=== PATIENT | male | born 1980 | race Two or more races ===

== ENCOUNTER 2023-12-24 10:40 | Emergency (ER) | payer MEDICAID ==
[~2023-12-24] VITALS: Ht 185.4 cm; Wt 113.0 kg
[2023-12-24 10:43] VITALS: O2SAT 98
[2023-12-24 12:02] LABS: BASOPHILS % 0.5 % (0.0-2.0); EOSINOPHILS % 3.5 % (0.0-5.0); HEMATOCRIT. 42.5 % (42.0-52.0); HEMOGLOBIN. 14.2 g/dL (14.0-18.0); LYMPHOCYTES % 14.6 % (20.0-50.0); MEAN CORPUSCULAR HEMOGLOBIN 32.8 pg (28.0-32.0); MEAN CORPUSCULAR HGB CONC 33.5 g/dL (31.0-37.0); MEAN CORPUSCULAR VOLUME 97.8 fL (80.0-94.0); MEAN PLATELET VOLUME 8.5 fl (7.4-10.4); MONOCYTES % 10.1 % (2.0-8.0); NEUTROPHILS % 71.3 % (40.0-76.0); PLATELET 187 x1000/uL (130-400); RED BLOOD CELL COUNT 4.34 mill/uL (4.7-6.1); RED CELL DISTRIBUTION WIDTH 13.5 % (11.6-14.6); WHITE BLOOD COUNT 5.9 x1000/uL (4.5-11.0)
[2023-12-24 12:13] LABS: CARBON DIOXIDE 24 mEq/L (21-32); CHLORIDE 112 mEq/L (98-107); POTASSIUM 4.2 mEq/L (3.5-5.1); SODIUM 141 mEq/L (136-145)
[2023-12-24 12:14] LABS: CALCIUM 9.7 mg/dL (8.7-10.4)
[2023-12-24 12:19] LABS: GLUCOSE 104 mg/dL (70-105); UREA NITROGEN BLOOD 7 mg/dL (9-23)
[2023-12-24 12:20] LABS: ALANINE AMINOTRANSFERASE 17 IU/L (10-49); ALBUMIN 4.3 g/dL (3.2-4.8)
[2023-12-24 12:21] LABS: ASPARTATE AMINOTRANSFERASE 26 IU/L (<34); BILIRUBIN DIRECT 0.2 mg/dL (<=3.0); BILIRUBIN TOTAL 0.7 mg/dL (0.1-1.0); PROTEIN TOTAL 6.7 g/dL (6.0-8.3)
[2023-12-24] MEDS: KETOROLAC 30MG/ML VIAL IM ONE (12:38)
[2023-12-24 12:55] LABS: CLARITY URINE CLEAR (CLEAR); COLOR URINE YELLOW (YELLOW); GLUCOSE URINE NEGATIVE (NEGATIVE); KETONES URINE TRACE (NEGATIVE); LEUKOCYTE ESTERASE URINE NEGATIVE (NEGATIVE); NITRITE URINE NEGATIVE (NEGATIVE); OCCULT BLOOD URINE TRACE (NEGATIVE); PROTEIN URINE NEGATIVE (NEGATIVE); SPECIFIC GRAVITY URINE 1.007 (1.005-1.030); UROBILINOGEN URINE 0.2 E.U./dL (0.2-1.0)
[2023-12-24 13:17] LABS: BACTERIA URINE NONE SEEN; RBC URINE 0-2 /hpf (0-2); SQUAMOUS EPITHELIAL CELL URINE NONE SEEN /lpf (RARE/1+); WBC URINE NONE SEEN /hpf (0-2); YEAST URINE NONE SEEN
[2023-12-24] MEDS ORDERED: FAMO-135 MT (13:29)
[2023-12-24 14:02] VITALS: BP 114/61; PULSE 68; RESP 18; TEMP 37.05852; O2SAT 99
== END 2023-12-24 14:04 | disposition home or self-care (01) ==
LOC: ER 10:40
DX: R10.12 Left upper quadrant pain (principal); R10.11 Right upper quadrant pain
CPT/HCPCS: 99285; 76700; 71045; 80076; 80048; 81003; 83690; 85025; 36415; 96372; J1885

== ENCOUNTER 2023-12-25 20:34 | Emergency (ER) | payer MEDICAID ==
[~2023-12-25] VITALS: Ht 185.4 cm; Wt 92.5 kg
[~2023-12-25 20:34] MED LIST: FAMO-135 MT
[2023-12-25 20:45] VITALS: O2SAT 98
[2023-12-25 23:54] LABS: BASOPHILS % 0.9 % (0.0-2.0); EOSINOPHILS % 4.7 % (0.0-5.0); HEMATOCRIT. 40.4 % (42.0-52.0); HEMOGLOBIN. 13.9 g/dL (14.0-18.0); LYMPHOCYTES % 28.1 % (20.0-50.0); MEAN CORPUSCULAR HEMOGLOBIN 34.1 pg (28.0-32.0); MEAN CORPUSCULAR HGB CONC 34.5 g/dL (31.0-37.0); MEAN CORPUSCULAR VOLUME 99.1 fL (80.0-94.0); MEAN PLATELET VOLUME 8.7 fl (7.4-10.4); MONOCYTES % 11.4 % (2.0-8.0); NEUTROPHILS % 54.9 % (40.0-76.0); PLATELET 191 x1000/uL (130-400); RED BLOOD CELL COUNT 4.08 mill/uL (4.7-6.1); RED CELL DISTRIBUTION WIDTH 13.5 % (11.6-14.6); WHITE BLOOD COUNT 6.6 x1000/uL (4.5-11.0)
[2023-12-26 00:02] LABS: CHLORIDE 111 mEq/L (98-107); POTASSIUM 4.2 mEq/L (3.5-5.1); SODIUM 142 mEq/L (136-145)
[2023-12-26 00:03] LABS: CALCIUM 9.7 mg/dL (8.7-10.4); CARBON DIOXIDE 25 mEq/L (21-32)
[2023-12-26 00:08] LABS: CREATININE 1.2 mg/dL (0.6-1.3); GLUCOSE 103 mg/dL (70-105); UREA NITROGEN BLOOD 14 mg/dL (9-23)
[2023-12-26 00:11] LABS: ALANINE AMINOTRANSFERASE 15 IU/L (10-49); ALBUMIN 4.4 g/dL (3.2-4.8); ASPARTATE AMINOTRANSFERASE 20 IU/L (<34); BILIRUBIN DIRECT 0.1 mg/dL (<=3.0); BILIRUBIN TOTAL 0.4 mg/dL (0.1-1.0); PROTEIN TOTAL 6.7 g/dL (6.0-8.3)
[2023-12-26] MEDS: KETOROLAC 30MG/ML VIAL IM NR (00:15)
[2023-12-26] MEDS: KETOROLAC 30MG/ML VIAL IM ONE (00:30)
[2023-12-26 01:00] VITALS: BP 122/71; PULSE 84; RESP 20; TEMP 36.78072; O2SAT 100
[2023-12-26 01:54] LABS: CLARITY URINE CLEAR (CLEAR); COLOR URINE YELLOW (YELLOW); GLUCOSE URINE NEGATIVE (NEGATIVE); KETONES URINE NEGATIVE (NEGATIVE); LEUKOCYTE ESTERASE URINE NEGATIVE (NEGATIVE); NITRITE URINE NEGATIVE (NEGATIVE); OCCULT BLOOD URINE NEGATIVE (NEGATIVE); PH URINE 5.5 (4.5-8.0); PROTEIN URINE NEGATIVE (NEGATIVE); SPECIFIC GRAVITY URINE 1.018 (1.005-1.030); UROBILINOGEN URINE 0.2 E.U./dL (0.2-1.0)
== END 2023-12-26 01:00 | disposition home or self-care (01) ==
LOC: ER 20:34
DX: R10.84 Generalized abdominal pain (principal)
CPT/HCPCS: 99285; 74176; 80076; 80048; 83690; 85025; 36415; 93005; 81003; 96372; J1885